=== PATIENT | female | born 1945 | race Caucasian/White ===

== ENCOUNTER 2016-09-10 07:16 | Inpatient (IN) | payer MEDICARE ==
[~2016-09-10 07:16] MED LIST: ACETAMINOPHEN-1 EACH PO; ADULT ASPIRIN81 MG PO; ARNUITY ELLIP100 MCG INH; ASPIR 8181 MG PO; BYSTOLIC20 MG PO; CARTIA XT120 MG PO; CLONAZEPAM0.5 M1 PO; COUMADIN1 M1 PO; COUMADIN2 MG PO; COUMADIN2.5 M1 PO; COUMADIN5 MG PO; DILTIAZEM ER180 M1 PO; FLECAINIDE ACE100 M1 PO; FLECAINIDE ACE100 MG PO; FLECAINIDE PO; FLURAZEPAM15 MG PO; IBUPROFEN200 M1 PO; IRON325 M3 PO; LASIX20 MG PO; LISINOPRIL PO; METOPROLOL SUCC25 MG PO; METOPROLOL TART50 MG PO; MULTIVITAMINS1 EAC6 PO; OMEPRAZOLE20 M2 PO; OS-CAL 500+D31 EAC1 PO; PACERONE200 M1 PO; PRINIVIL5 M1 PO; REQUIP PO; REQUIP2 MG PO; REQUIP4 M1 PO; XARELTO20 MG PO; ZESTRIL5 MG PO; [UNRECOGNIZED DRUG - OTHER] PO
[2016-09-10 07:36] LABS: ABG CO2 ARTERIAL 15 mmol/L (21-27); ARTERIAL BLD GAS O2 SATURATION 99 % (95-98); ARTERIAL BLOOD GAS PCO2 24 mmHg (32-45); ARTERIAL PO2 225 mmHg (70-100); BICARBONATE 14 mmol/L (21-28); BLOOD GAS BASE EXCESS -9 mM/L (-/+3); PH 7.39 Units (7.35-7.45)
[2016-09-10 07:44] LABS: BASO ABSOLUTE COUNT 0.1 tho/cmm (0.0-0.2); EOS % 3.1 % (0-7); EOSINOPHIL ABSOLUTE COUNT 0.2 tho/cmm (0.0-0.7); HCT-HEMATOCRIT 41.5 % (34.0-49.0); HGB-HEMOGLOBIN 13.9 gm/dl (12.0-15.5); IMMATURE GRANULOCYTES ABSOLUTE 0.16 tho/cmm (0-0.03); IMMATURE GRANULOCYTES PERCENT 3.1 % (0-0.3); LYMPH % 80.4 % (20-45); LYMPH ABSOLUTE COUNT 4.2 tho/cmm (0.8-4.5); MCHC MEAN CORPUSCULAR HGB CONC 33.5 % (32.0-36.0); MCV (MEAN CELL VOLUME) 92.4 fl (82.0-96.0); MEAN PLATELET VOLUME 12.2 cmc (9.4-12.4); MONO % 5.6 % (0-12); MONOCYTE ABSOLUTE COUNT 0.3 tho/cmm (0.0-1.2); NEUTROPHILS % 6.8 % (40-80); PLATELET COUNT 263 tho/cmm (150-450); RED BLOOD COUNT 4.49 mil/cmm (4.00-5.20); WHITE BLOOD COUNT 5.2 tho/cmm (4.0-10.0)
[2016-09-10 07:47] LABS: NEUTROPHIL ABSOLUTE COUNT 0.4 tho/cmm (1.6-8.0); NEUTROPHIL-AUTOMATED 0.4 tho/cmm (1.6-8.0)
[2016-09-10 07:59] LABS: INR 0.9 INR (0.9-1.1); PROTHROMBIN TIME 10.4 SECONDS (9.0-13.6)
[2016-09-10 08:13] LABS: ALB/GLOB RATIO 1.1 (0.8-2.0); ALBUMIN 3.6 g/dl (3.5-5.0); ALKALINE PHOSPHATASE 85 U/L (33-138); ALT/SGPT 26 U/L (12-78); ANION GAP 18 mmol/L (0-20); AST/SGOT 37 U/L (10-40); BILIRUBIN,TOTAL 0.4 mg/dl (0-1.5); BLOOD UREA NITROGEN 16 mg/dl (6-24); CALCIUM 9.2 mg/dl (8.5-10.5); CARBON DIOXIDE-VENOUS 21 mmol/L (22-32); CHLORIDE 107 mmol/l (96-110); CREATININE 1.19 mg/dl (0.50-1.10); GLUCOSE 163 mg/dL (70-110); MAGNESIUM 2.3 mg/dl (1.8-2.6); POTASSIUM 3.2 mmol/L (3.7-5.1); SODIUM 143 mmol/L (135-145); eGFR VALUE FOR BLACK 53 mL/Min
[2016-09-10 11:58] LABS: ABG CO2 ARTERIAL 18 mmol/L (21-27); ARTERIAL BLD GAS O2 SATURATION 100 % (95-98); BLOOD GAS BASE EXCESS -7 mM/L (-/+3)
[2016-09-10 11:59] LABS: ARTERIAL BLOOD GAS PCO2 39 mmHg (32-45); ARTERIAL PO2 296 mmHg (70-100); BICARBONATE 19 mmol/L (21-28)
[2016-09-10 12:29] LABS: PHOSPHOROUS 3.7 mg/dl (2.5-4.9)
[2016-09-10 12:42] LABS: POTASSIUM 4.5 mmol/L (3.7-5.1)
[2016-09-10 12:44] LABS: CKMB 99.7 ng/ml (<3.6)
[2016-09-10] MEDS ORDERED: PLAVIX75 M1 PO (14:12)
[2016-09-10] MEDS ORDERED: ASPIRIN81 M1 PO (14:23)
[2016-09-10 15:17] LABS: CARBON DIOXIDE-VENOUS 22 mmol/L (21-33); CREATININE 1.18 mg/dl (0.67-1.17); GLUCOSE 141 mg/dl (65-120); POTASSIUM 5.2 mmol/L (3.5-5.3); SODIUM 134 mmol/L (135-146); eGFR VALUE FOR BLACK 54 mL/Min
[2016-09-10 15:32] LABS: ALBUMIN 3.4 g/dl (3.5-5.0); BLOOD UREA NITROGEN 21 mg/dl (6-24); CALCIUM 8.7 mg/dl (8.5-10.5); CHLORIDE 111 mmol/l (96-110); PHOSPHOROUS 4.1 mg/dl (2.5-4.9)
[2016-09-10 15:33] LABS: ANION GAP 6 mmol/L (0-20)
[2016-09-10 15:49] LABS: BASO % 0.1 % (0-2); HGB-HEMOGLOBIN 12.8 gm/dl (12.0-15.5); IMMATURE GRANULOCYTES ABSOLUTE 0.04 tho/cmm (0-0.03); IMMATURE GRANULOCYTES PERCENT 0.3 % (0-0.3); LYMPH % 7.9 % (20-45); LYMPH ABSOLUTE COUNT 1.1 tho/cmm (0.8-4.5); MCHC MEAN CORPUSCULAR HGB CONC 33.7 % (32.0-36.0); MEAN PLATELET VOLUME 11.9 cmc (9.4-12.4); MONO % 8.2 % (0-12); MONOCYTE ABSOLUTE COUNT 1.2 tho/cmm (0.0-1.2); NEUTROPHIL ABSOLUTE COUNT 11.9 tho/cmm (1.6-8.0); NEUTROPHIL-AUTOMATED 11.9 tho/cmm (1.6-8.0); NEUTROPHILS % 83.5 % (40-80); PLATELET COUNT 295 tho/cmm (150-450); RED BLOOD COUNT 4.13 mil/cmm (4.00-5.20); RED CELL DISTRIBUTION WIDTH 14.3 % (12.4-16.4); WHITE BLOOD COUNT 14.2 tho/cmm (4.0-10.0)
[2016-09-10 16:16] LABS: BASO % 0.2 % (0-2); EOS % 0.1 % (0-7); HCT-HEMATOCRIT 38.2 % (34.0-49.0); HGB-HEMOGLOBIN 12.7 gm/dl (12.0-15.5); IMMATURE GRANULOCYTES ABSOLUTE 0.07 tho/cmm (0-0.03); IMMATURE GRANULOCYTES PERCENT 0.4 % (0-0.3); LYMPH % 10.1 % (20-45); LYMPH ABSOLUTE COUNT 1.7 tho/cmm (0.8-4.5); MCH (MEAN CORPUSCULAR HGB) 30.9 pg (28.0-32.0); MCHC MEAN CORPUSCULAR HGB CONC 33.2 % (32.0-36.0); MCV (MEAN CELL VOLUME) 92.9 fl (82.0-96.0); MEAN PLATELET VOLUME 12.1 cmc (9.4-12.4); MONO % 9.5 % (0-12); MONOCYTE ABSOLUTE COUNT 1.6 tho/cmm (0.0-1.2); NEUTROPHIL ABSOLUTE COUNT 13.4 tho/cmm (1.6-8.0); NEUTROPHIL-AUTOMATED 13.4 tho/cmm (1.6-8.0); NEUTROPHILS % 79.7 % (40-80); PLATELET COUNT 304 tho/cmm (150-450); RED BLOOD COUNT 4.11 mil/cmm (4.00-5.20); RED CELL DISTRIBUTION WIDTH 14.3 % (12.4-16.4); WHITE BLOOD COUNT 16.8 tho/cmm (4.0-10.0)
[2016-09-10 16:28] LABS: ALBUMIN 3.1 g/dl (3.5-5.0); ALKALINE PHOSPHATASE 62 U/L (33-138); BILIRUBIN,TOTAL 0.4 mg/dl (0-1.5); BLOOD UREA NITROGEN 21 mg/dl (6-24); CARBON DIOXIDE-VENOUS 20 mmol/L (22-32); CHLORIDE 110 mmol/l (96-110); CREATININE 1.28 mg/dl (0.50-1.10); GLUCOSE 182 mg/dL (70-110); SODIUM 141 mmol/L (135-145); eGFR VALUE FOR BLACK 49 mL/Min
[2016-09-10 16:29] LABS: ALT/SGPT 46 U/L (12-78); ANION GAP 15 mmol/L (0-20); AST/SGOT 189 U/L (10-40)
[2016-09-10 17:25] LABS: PROTHROMBIN TIME 11.2 SECONDS (9.0-13.6)
[2016-09-10 17:38] LABS: PHOSPHOROUS 4.4 mg/dl (2.5-4.9); POTASSIUM 3.9 mmol/L (3.7-5.1)
[2016-09-10 21:45] LABS: ABG CO2 ARTERIAL 14 mmol/L (21-27); ARTERIAL BLD GAS O2 SATURATION 99 % (95-98); ARTERIAL BLOOD GAS PCO2 30 mmHg (32-45); ARTERIAL PO2 166 mmHg (70-100); BICARBONATE 13 mmol/L (21-28); BLOOD GAS BASE EXCESS -13 mM/L (-/+3); PH 7.25 Units (7.35-7.45)
[2016-09-10 22:23] LABS: URINE BILIRUBIN NEGATIVE (NEG); URINE BLOOD MODERATE (NEG); URINE GLUCOSE (UA) NEGATIVE (NEG); URINE KETONE NEGATIVE (NEG); URINE LEUKOCYTE ESTERASE POSITIVE (NEG); URINE NITRITE NEGATIVE (NEG); URINE PROTEIN MODERATE (NEG)
[2016-09-10 22:25] LABS: URINE APPEARANCE HAZY; URINE COLOR YELLOW
[2016-09-10 22:31] LABS: URINE RBC 15-20 /[HPF] (0-5)
[2016-09-10 22:32] LABS: URINE BACTERIA 2+; URINE EPITHELIAL CELLS 0-1 /[HPF] (0-10)
[2016-09-10 22:40] LABS: BLOOD UREA NITROGEN 21 mg/dl (6-24); CARBON DIOXIDE-VENOUS 14 mmol/L (22-32); CHLORIDE 113 mmol/l (96-110); CREATININE 1.57 mg/dl (0.50-1.10); GLUCOSE 203 mg/dL (70-110); PHOSPHOROUS 5.2 mg/dl (2.5-4.9); SODIUM 140 mmol/L (135-145); eGFR VALUE FOR BLACK 38 mL/Min
[2016-09-10 22:41] LABS: ANION GAP 18 mmol/L (0-20); MAGNESIUM 2.4 mg/dl (1.8-2.6); POTASSIUM 4.8 mmol/L (3.7-5.1)
[2016-09-10 23:10] LABS: ABG CO2 ARTERIAL 13 mmol/L (21-27); ARTERIAL BLD GAS O2 SATURATION 99 % (95-98); ARTERIAL BLOOD GAS PCO2 30 mmHg (32-45); ARTERIAL PO2 188 mmHg (70-100); BICARBONATE 13 mmol/L (21-28); BLOOD GAS BASE EXCESS -13 mM/L (-/+3); PH 7.24 Units (7.35-7.45)
[2016-09-11 00:52] LABS: ABG CO2 ARTERIAL 20 mmol/L (21-27); ARTERIAL BLD GAS O2 SATURATION 99 % (95-98); ARTERIAL BLOOD GAS PCO2 35 mmHg (32-45); ARTERIAL PO2 187 mmHg (70-100); BICARBONATE 19 mmol/L (21-28); BLOOD GAS BASE EXCESS -6 mM/L (-/+3); PH 7.35 Units (7.35-7.45)
[2016-09-11 05:06] LABS: HGB-HEMOGLOBIN 11.3 gm/dl (12.0-15.5); IMMATURE GRANULOCYTES ABSOLUTE 0.03 tho/cmm (0-0.03); IMMATURE GRANULOCYTES PERCENT 0.2 % (0-0.3); LYMPH % 4.8 % (20-45); LYMPH ABSOLUTE COUNT 0.7 tho/cmm (0.8-4.5); MCH (MEAN CORPUSCULAR HGB) 30.4 pg (28.0-32.0); MCHC MEAN CORPUSCULAR HGB CONC 33.2 % (32.0-36.0); MCV (MEAN CELL VOLUME) 91.4 fl (82.0-96.0); MEAN PLATELET VOLUME 11.8 cmc (9.4-12.4); MONOCYTE ABSOLUTE COUNT 0.9 tho/cmm (0.0-1.2); NEUTROPHIL ABSOLUTE COUNT 12.9 tho/cmm (1.6-8.0); NEUTROPHIL-AUTOMATED 12.9 tho/cmm (1.6-8.0); PLATELET COUNT 240 tho/cmm (150-450); RED BLOOD COUNT 3.72 mil/cmm (4.00-5.20); RED CELL DISTRIBUTION WIDTH 14.5 % (12.4-16.4); WHITE BLOOD COUNT 14.5 tho/cmm (4.0-10.0)
[2016-09-11 05:12] LABS: ABG CO2 ARTERIAL 20 mmol/L (21-27); ARTERIAL BLD GAS O2 SATURATION 99 % (95-98); ARTERIAL BLOOD GAS PCO2 35 mmHg (32-45); BICARBONATE 19 mmol/L (21-28); BLOOD GAS BASE EXCESS -6 mM/L (-/+3); PH 7.34 Units (7.35-7.45)
[2016-09-11 05:15] LABS: ARTERIAL PO2 164 mmHg (70-100)
[2016-09-11 05:21] LABS: ALB/GLOB RATIO 0.9 (0.8-2.0); ALBUMIN 2.5 g/dl (3.5-5.0); ALKALINE PHOSPHATASE 46 U/L (33-138); ALT/SGPT 49 U/L (12-78); AST/SGOT 158 U/L (10-40); BILIRUBIN,TOTAL 0.5 mg/dl (0-1.5); BLOOD UREA NITROGEN 23 mg/dl (6-24); CALCIUM 7.5 mg/dl (8.5-10.5); CARBON DIOXIDE-VENOUS 19 mmol/L (22-32); CHLORIDE 107 mmol/l (96-110); CREATININE 1.67 mg/dl (0.50-1.10); GLUCOSE 243 mg/dL (70-110); MAGNESIUM 1.9 mg/dl (1.8-2.6); SODIUM 140 mmol/L (135-145); eGFR VALUE FOR BLACK 35 mL/Min
[2016-09-11 05:23] LABS: ANION GAP 18 mmol/L (0-20); PHOSPHOROUS 2.9 mg/dl (2.5-4.9); POTASSIUM 3.5 mmol/L (3.7-5.1)
[2016-09-11 10:14] LABS: TSH-THYROID STIMULATING HORM. 0.56 uIU/ml (0.40-3.80)
== END 2016-09-11 10:22 | disposition other institution (70) | DRG 280 ==
LOC: EDMED 07:16 → EMR2 08:43 → CCU 10:06
PROVIDERS: Emergency Medicine; Internal Medicine; Internal Medicine Cardiovascular Disease; ADMIT Internal Medicine
PROC: 5A12012 Performance of Cardiac Output, Single, Manual (ICD-10-PCS; 2016-09-09)
PROC: 4A023N7 Measurement of Cardiac Sampling and Pressure, Left Heart, Percutaneous Approach (ICD-10-PCS; principal; 2016-09-10)
PROC: B2111ZZ Fluoroscopy of Multiple Coronary Arteries using Low Osmolar Contrast (ICD-10-PCS; principal; 2016-09-10)
PROC: 5A1945Z Respiratory Ventilation, 24-96 Consecutive Hours (ICD-10-PCS; 2016-09-10)
PROC: B246ZZZ Ultrasonography of Right and Left Heart (ICD-10-PCS; 2016-09-10)
DX: I21.09 ST elevation (STEMI) myocardial infarction involving other coronary artery of anterior wall (principal); I49.01 Ventricular fibrillation; J96.01 Acute respiratory failure with hypoxia; I46.2 Cardiac arrest due to underlying cardiac condition; G81.91 Hemiplegia, unspecified affecting right dominant side; N17.9 Acute kidney failure, unspecified; I48.0 Paroxysmal atrial fibrillation; R41.82 Altered mental status, unspecified; I10 Essential (primary) hypertension; E87.6 Hypokalemia; R73.9 Hyperglycemia, unspecified
CPT/HCPCS: C1757; C1769; C1887; C1894; C9113; J0171; J0282; J0330; J0610; J1250; J1265; J1644; J1720; J1815; J2250; J2543; J2704; J3010; J3370; J3475; J3480; J7030; J7040; J7050; Q9967